=== PATIENT | male | born 1960 | race Caucasian/White ===

== ENCOUNTER 2017-01-24 14:43 | Emergency (ER) | payer OTHER ==
--- NOTE | 2017-01-24 15:56 | EDM.PDOC ---
ED HPI GENERAL MEDICAL PROBLEM - General Chief Complaint: Cardiovascular Problem Stated Complaint: RAPID HEART RATE Time Seen by Provider: 01/24/17 15:47 Source of Information: Reports: Patient, RN Notes Reviewed History Limitations: Reports: No Limitations - History of Present Illness INITIAL COMMENTS - FREE TEXT/NARRATIVE: The patient states that he has been experiencing low energy today. He states that he has dizzy spells, only when he is upright, since around 13:00 this afternoon. He states that after work, he went home and checked his blood pressure, finding it to be 99/66 with a heart rate of 71. He states that he went to the clinic, but was sent here. No prior similar symptoms. The patient denies having any recent chest pain or palpitations. No recent fever. He states that he had some shortness of breath without wheezing this morning, and took 2 puffs of his albuterol inhaler. The patient's PCP is Dr. Bobby Reese. - Related Data Allergies Allergy/AdvReac Type Severity Reaction Status Date / Time No Known Allergies Allergy Verified 01/24/17 14:51 Home Meds: Home Meds Aspirin [Halfprin] 81 mg PO DAILY 06/01/16 [History] Haloperidol [Haldol] 0.5 mg PO BEDTIME 06/01/16 [History] Isosorbide Mononitrate [Isosorbide Mononitrate ER] 30 mg PO DAILY 06/01/16 [ History] Lisinopril 40 mg PO DAILY 06/01/16 [History] Metoprolol Succinate [Toprol XL] 25 mg PO BEDTIME 06/01/16 [History] Nitroglycerin 0.4 mg SL ASDIRECTED 06/01/16 [History] PARoxetine HCl [Paroxetine HCl] 30 mg PO BEDTIME 06/01/16 [History] Pantoprazole [ProTONIX] 40 mg PO DAILY 06/01/16 [History] atorvaSTATin [Lipitor] 80 mg PO DAILY 06/01/16 [History] Furosemide [Lasix] 20 mg PO DAILY 01/24/17 [History] Past Medical History Cardiovascular History: Reports: CAD, Heart Failure, High Cholesterol, Hypertension, [place] (December 2009) Respiratory History: Reports: Other (See Below) (The patient was prescribed an albuterol inhaler for "asthma", however, he did not have asthma as a child, and has not undergone PFTs.) Gastrointestinal History: Reports: GERD Endocrine/Metabolic History: Reports: Obesity/BMI 30+ - Past Surgical History Cardiovascular Surgical History: Reports: Coronary Artery Stent Social & Family History - Tobacco Use Smoking Status *Q: Former Smoker Years of Tobacco use: 30 Packs/Tins Daily: 1 Month Tobacco Last Used: Quit 2009 - Alcohol Use Alcohol Use History: No - Recreational Drug Use Recreational Drug Use: No - Living Situation & Occupation Living situation: Reports: (), Alone Occupation: Employed ([employer]) ED ROS GENERAL - Review of Systems Review Of Systems: See Below Constitutional: Reports: No Symptoms HEENT: Reports: No Symptoms Respiratory: Reports: No Symptoms Cardiovascular: Reports: No Symptoms Endocrine: Reports: No Symptoms GI/Abdominal: Reports: No Symptoms : Reports: No Symptoms Musculoskeletal: Reports: No Symptoms Skin: Reports: No Symptoms Neurological: Reports: No Symptoms Psychiatric: Reports: No Symptoms Hematologic/Lymphatic: Reports: No Symptoms Immunologic: Reports: No Symptoms ED EXAM, GENERAL - Physical Exam Exam: See Below Exam Limited By: No Limitations General Appearance: Alert, WD/WN, No Apparent Distress Eye Exam: Bilateral Eye: Normal Inspection Ears: Normal External Exam, Hearing Grossly Normal Nose: Normal Inspection, No Blood Throat/Mouth: Normal Inspection, Normal Lips, Normal Voice, No Airway Compromise Head: Atraumatic, Normocephalic Neck: Normal Inspection, Full Range of Motion Respiratory/Chest: No Respiratory Distress, Lungs Clear, Normal Breath Sounds, No Accessory Muscle Use Cardiovascular: Normal Peripheral Pulses, Regular Rate, Rhythm, No Gallop, No JVD, No Murmur, No Rub Peripheral Pulses: 4+: Radial (L), Radial (R) GI/Abdominal: Normal Bowel Sounds, Soft, Non-Tender, No Organomegaly, No Distention, No Abnormal Bruit, No Mass, Other (Obese) (Male) Exam: Deferred Rectal (Males) Exam: Deferred Back Exam: Normal Inspection, Full Range of Motion, NT Extremities: Normal Inspection, Normal Range of Motion, No Pedal Edema, Normal Capillary Refill Neurological: Alert, Oriented, Normal Cognition, No Motor/Sensory Deficits Psychiatric: Normal Affect Skin Exam: Warm, Dry, Intact, Normal Color, No Rash Lymphatic: No Adenopathy EKG INTERPRETATION EKG Date: 01/24/17 Time: 14:52 Rhythm: NSR Rate (Beats/Min): 65 [place]: Normal P-Wave: Present QRS: Other (Likely incomplete RBBB) ST-T: Normal QT: Normal Comparison: No Change (06/01/2016) Course - Vital Signs Last Recorded V/S: Last Vital Signs Temp 36.7 C 01/24/17 14:51 Pulse 65 01/24/17 14:51 Resp 16 01/24/17 14:51 BP 110/62 01/24/17 14:51 Pulse Ox 96 01/24/17 14:51 Orthostatic Blood Pressure [ 109/68 Supine] - Orders/Labs/Meds Orders: Active Orders 24 hr Category Date Time Status EKG 12 Lead [EKG Documentation Completion] [RC] STAT Care 01/24/17 15:39 Active Orthostatic Vital Signs [RC] STAT Care 01/24/17 16:19 Active Chest 1V Frontal [CR] Stat Exams 01/24/17 15:40 Taken Labs: Laboratory Tests 01/24/17 01/24/17 01/24/17 Range/Units 15:47 15:47 15:47 WBC 6.67 (4.23-9.07) K/mm3 RBC 4.56 L (4.63-6.08) M/mm3 Hgb 13.6 L (13.7-17.5) gm/L Hct 41.5 (40.1-51.0) % MCV 91.0 (79.0-92.2) fl MCH 29.8 (25.7-32.2) pg MCHC 32.8 (32.2-35.5) g/dl RDW Std Deviation 43.4 (35.1-43.9) fL Plt Count 189 (163-337) K/mm3 MPV 11.5 (9.4-12.3) fl PT (8.0-13.0) SECONDS INR APTT (22-36) SECONDS D-Dimer, Quantitative 0.39 (0.19-0.59) mg/L Sodium 144 (136-145) mEq/L Potassium 4.2 (3.5-5.1) mEq/L Chloride 109 H (98-107) mEq/L Carbon Dioxide 32 (21-32) mEq/L Anion Gap 7.2 (5-15) BUN 16 (7-18) mg/dL Creatinine 1.2 (0.7-1.3) mg/dL Est Cr Clr Drug Dosing TNP Estimated GFR (MDRD) > 60 (>60) mL/min BUN/Creatinine Ratio 13.3 L (14-18) Glucose 69 L (74-106) mg/dL Calcium 8.7 (8.5-10.1) mg/dL Total Bilirubin 0.4 (0.2-1.0) mg/dL AST 37 (15-37) U/L ALT 43 (16-63) U/L Alkaline Phosphatase 79 (46-116) U/L Troponin I < 0.017 (0.00-0.056) ng/mL [id number] Pept (0-125) pg/mL Total Protein 6.0 L (6.4-8.2) g/dl Albumin 3.5 (3.4-5.0) g/dl Globulin 2.5 gm/dL Albumin/Globulin Ratio 1.4 (1-2) TSH 3rd Generation 3.554 (0.358-3.74) uIU/mL 01/24/17 01/24/17 Range/Units 15:47 15:47 WBC (4.23-9.07) K/mm3 RBC (4.63-6.08) M/mm3 Hgb (13.7-17.5) gm/L Hct (40.1-51.0) % MCV (79.0-92.2) fl MCH (25.7-32.2) pg MCHC (32.2-35.5) g/dl RDW Std Deviation (35.1-43.9) fL Plt Count (163-337) K/mm3 MPV (9.4-12.3) fl PT 10.8 (8.0-13.0) SECONDS INR 0.99 APTT 26 (22-36) SECONDS D-Dimer, Quantitative (0.19-0.59) mg/L Sodium (136-145) mEq/L Potassium (3.5-5.1) mEq/L Chloride (98-107) mEq/L Carbon Dioxide (21-32) mEq/L Anion Gap (5-15) BUN (7-18) mg/dL Creatinine (0.7-1.3) mg/dL Est Cr Clr Drug Dosing Estimated GFR (MDRD) (>60) mL/min BUN/Creatinine Ratio (14-18) Glucose (74-106) mg/dL Calcium (8.5-10.1) mg/dL Total Bilirubin (0.2-1.0) mg/dL AST (15-37) U/L ALT (16-63) U/L Alkaline Phosphatase (46-116) U/L Troponin I (0.00-0.056) ng/mL Ptf-[id number]-Bktybnmlaqj Pept 67 (0-125) pg/mL Total Protein (6.4-8.2) g/dl Albumin (3.4-5.0) g/dl Globulin gm/dL Albumin/Globulin Ratio (1-2) TSH 3rd Generation (0.358-3.74) uIU/mL - Re-Assessments/Exams Free Text/Narrative Re-Assessment/Exam: 01/24/17 17:05 Portable chest radiograph appears to be grossly normal. Cardiac silhouette is within normal limits. No pulmonary vascular congestion. No pleural effusions. No focal infiltrate. No pneumothorax. Formal read per the Radiologist pending. 01/24/17 17:10 The patient is not orthostatic. 01/24/17 17:49 Test results discussed with the patient. Today's workup is unremarkable, and does not extend the cause of the patient's symptoms. His blood glucose is modestly depressed at 69, however, the patient states that his symptoms are not influenced by eating. I recommended to the patient that if his symptoms persist , that he follow-up with his PCP, Dr. Reese. Departure - Departure Time of Disposition: 17:50 Disposition: Home, Self-Care 01 Condition: Good Clinical Impression: Malaise and fatigue, Dizzy spells Referrals: Bobby Reese Jr, MD [Primary Care Provider] - Forms: ED Department Discharge Additional Instructions: You were seen in the emergency room for having low energy and dizzy spells. Workup in the ER included blood work, an ECG, a chest x-ray, and positional blood pressure checks. Your entire workup was unremarkable, and does not explain the cause of your symptoms. You have not had a heart attack. You do not have a blood clot in your lungs. Your thyroid level is normal. You do not have pneumonia. There is no suggestion that you have an infection. You do not have any electrolyte abnormalities. No abnormal rhythms on your ECG. No congestive heart failure. If your symptoms persist, we recommend that you follow-up with your PCP, Dr. Bobby Reese. If any other problems, please do not hesitate to return to the ER. - My Orders Last 24 Hours: My Active Orders 01/24/17 16:19 Orthostatic Vital Signs [RC] STAT - Assessment/Plan Last 24 Hours: My Active Orders 01/24/17 16:19 Orthostatic Vital Signs [RC] STAT
[2017-01-24 16:30] VITALS: BP 110/62
--- NOTE | 2017-01-25 09:29 | CR ---
Chest: Frontal view of the chest was obtained. Comparison: Previous chest x-ray of 06/01/16. Heart size is within normal limits. Mild tortuosity of the thoracic aorta is seen. Lungs are clear. Bony structures are grossly intact. Impression: 1. Nothing acute is appreciated on frontal chest x-ray. Diagnostic code #1
== END 2017-01-24 18:25 | disposition home or self-care (01) ==
LOC: JD.ED 14:43
DX: R42 Dizziness and giddiness (principal); R53.83 Other fatigue; R53.81 Other malaise; I11.0 Hypertensive heart disease with heart failure; I50.9 Heart failure, unspecified; E78.00 Pure hypercholesterolemia, unspecified; I25.2 Old myocardial infarction; I25.10 Atherosclerotic heart disease of native coronary artery without angina pectoris; K21.9 Gastro-esophageal reflux disease without esophagitis; E66.9 Obesity, unspecified; Z95.5 Presence of coronary angioplasty implant and graft; Z87.891 Personal history of nicotine dependence; Z79.899 Other long term (current) drug therapy; Z79.82 Long term (current) use of aspirin; Z68.34 Body mass index [BMI] 34.0-34.9, adult
CPT/HCPCS: 36415; 71010; 71010-26; 80053; 83880; 84443; 84484; 85027; 85379; 85610; 85730; 93005; 99283; 99285-25

== ENCOUNTER 2018-03-03 14:04 | Emergency (ER) | payer OTHER ==
[2018-03-03] MEDS ORDERED: Aspirin 81 MG Tab.Chew PO ONE (14:23)
[2018-03-03] MEDS ORDERED: Nitroglycerin 0.4 MG Tab.SL SL ONE (14:23)
[2018-03-03] MEDS ORDERED: Alum Hydrox/Mag Hydrox/Simeth 30 ML, Lidocaine 2% 15 ML PO ONE ×2 (14:24)
[2018-03-03] MEDS ORDERED: Ondansetron 4 MG/2 ML SDV IVPUSH ONE (14:25)
[2018-03-03] MEDS ORDERED: Sodium Chloride 0.9% 1,000 ML IV SCH (14:30)
--- NOTE | 2018-03-03 14:34 | EDM.PDOC ---
ED HPI GENERAL MEDICAL PROBLEM - General Chief Complaint: Cardiovascular Problem Stated Complaint: CHEST PAIN Time Seen by Provider: 03/03/18 14:15 Source of Information: Reports: Patient History Limitations: Reports: No Limitations - History of Present Illness INITIAL COMMENTS - FREE TEXT/NARRATIVE: Patient is a 57-year-old male who presents to the ED complaining of lower sternal chest discomfort with diaphoresis and nausea. Patient states at about noon today while at rest developed discomfort. Pain is currently rated 2 out of 10. Pain is similar to previous chest discomfort with last RI that required stent placement. Patient has 2 stents to unknown vessel. First one was placed in 2009 and the second was placed in 2011. He has not taken any of his morning medications today since completing the gi cleanse for colonoscopy tomorrow. Chest Pain Score (Numeric/FACES): 4 - Related Data Allergies Allergy/AdvReac Type Severity Reaction Status Date / Time No Known Allergies Allergy Verified 01/24/17 14:51 Home Meds: Home Meds Aspirin [Halfprin] 81 mg PO DAILY 06/01/16 [History] Haloperidol [Haldol] 0.5 mg PO BEDTIME 06/01/16 [History] Isosorbide Mononitrate [Isosorbide Mononitrate ER] 30 mg PO DAILY 06/01/16 [ History] Lisinopril 40 mg PO DAILY 06/01/16 [History] Nitroglycerin 0.4 mg SL ASDIRECTED 06/01/16 [History] PARoxetine HCl [Paroxetine HCl] 30 mg PO BEDTIME 06/01/16 [History] Pantoprazole [ProTONIX] 40 mg PO DAILY 06/01/16 [History] Furosemide [Lasix] 20 mg PO DAILY 01/24/17 [History] Metoprolol Succinate [Toprol XL] 12.5 mg PO BEDTIME 03/03/18 [History] Rosuvastatin Calcium [Crestor] 40 mg PO BEDTIME 03/03/18 [History] Past Medical History Cardiovascular History: Reports: CAD, Heart Failure, High Cholesterol, Hypertension, RI, Stents Respiratory History: Reports: Other (See Below) Gastrointestinal History: Reports: GERD Psychiatric History: Reports: Other (See Below) Other Psychiatric History: pt wears ankle bracelet since 2015 for sex offender Endocrine/Metabolic History: Reports: Obesity/BMI 30+ - Past Surgical History Cardiovascular Surgical History: Reports: Coronary Artery Stent Social & Family History - Tobacco Use Smoking Status *Q: Current Every Day Smoker Years of Tobacco use: 1 Packs/Tins Daily: 1 - Caffeine Use Caffeine Use: Reports: Soda - Recreational Drug Use Recreational Drug Use: No - Living Situation & Occupation Living situation: Reports: (), Alone Occupation: Employed ([employer]) ED ROS GENERAL - Review of Systems Review Of Systems: See Below Constitutional: Reports: Chills. Denies: Fever, Decreased Appetite Respiratory: Reports: Cough (Chronic). Denies: Shortness of Breath, Hemoptysis Cardiovascular: Reports: Chest Pain (Lower sternal border). Denies: Dyspnea on Exertion, Lightheadedness, Palpitations, Syncope GI/Abdominal: Reports: No Symptoms : Reports: No Symptoms Musculoskeletal: Reports: No Symptoms Neurological: Reports: No Symptoms ED EXAM, GENERAL - Physical Exam Exam: See Below Exam Limited By: No Limitations General Appearance: Alert, WD/WN, Mild Distress Eye Exam: Bilateral Eye: Normal Inspection Ears: Hearing Grossly Normal Nose: Normal Inspection Throat/Mouth: Normal Voice, No Airway Compromise Head: Atraumatic, Normocephalic Neck: Normal Inspection, Supple, Non-Tender, Full Range of Motion Respiratory/Chest: No Respiratory Distress, Lungs Clear, Normal Breath Sounds, No Accessory Muscle Use, Chest Non-Tender Cardiovascular: Normal Peripheral Pulses, Regular Rate, Rhythm, No Murmur Peripheral Pulses: 1+: Posterior Tibial (L), Posterior Tibial (R), 2+: Radial (L ), Radial (R) GI/Abdominal: Normal Bowel Sounds, Soft, Non-Tender, No Organomegaly, No Distention Extremities: Normal Inspection, Normal Range of Motion, Non-Tender, No Pedal Edema, Normal Capillary Refill Neurological: Alert, Oriented, CN II-XII Intact, Normal Cognition, No Motor/ Sensory Deficits Psychiatric: Normal Affect, Normal Mood Skin Exam: Warm, Dry, Intact, Normal Color, No Rash Course - Vital Signs Last Recorded V/S: Last Vital Signs Temp 100.9 F H 03/03/18 15:44 Pulse 72 03/03/18 15:44 Resp 20 03/03/18 15:44 BP 132/99 H 03/03/18 15:44 Pulse Ox 96 03/03/18 15:44 - Orders/Labs/Meds Orders: Active Orders 24 hr Category Date Time Status EKG 12 Lead [EKG Documentation Completion] [RC] STAT Care 03/03/18 14:55 Active EKG Documentation Completion [RC] ASDIRECTED Care 03/03/18 14:49 Active Chest 1V Frontal [CR] Stat Exams 03/03/18 14:23 Taken CULTURE BLOOD [BC] Stat Lab 03/03/18 16:16 Received CULTURE BLOOD [BC] Stat Lab 03/03/18 16:23 Received Blood Culture x2 Reflex Set [OM.PC] Stat Oth 03/03/18 15:54 Ordered EKG 12 Lead [EK] Stat Ther 03/03/18 14:48 Ordered Labs: Laboratory Tests 03/03/18 03/03/18 03/03/18 Range/Units 14:15 14:15 14:15 WBC 13.22 H (4.23-9.07) K/mm3 RBC 5.46 (4.63-6.08) M/mm3 Hgb 16.0 (13.7-17.5) gm/L Hct 48.6 (40.1-51.0) % MCV 89.0 (79.0-92.2) fl MCH 29.3 (25.7-32.2) pg MCHC 32.9 (32.2-35.5) g/dl RDW Std Deviation 42.5 (35.1-43.9) fL Plt Count 206 (163-337) K/mm3 MPV 11.7 (9.4-12.3) fl Neutrophils % (Manual) 89 H (40-60) % Band Neutrophils % 0 (0-10) % Lymphocytes % (Manual) 6 L (20-40) % Atypical Lymphs % 0 % Monocytes % (Manual) 1 L (2-10) % Eosinophils % (Manual) 2 (0.8-7.0) % Basophils % (Manual) 2 H (0.2-1.2) Platelet Estimate Adequate Plt Morphology Comment Normal RBC Morph Comment Normal PT 10.6 (9.5-12.1) SECONDS INR 0.97 APTT 22 L (24-31) SECONDS Sodium 142 (136-145) mEq/L Potassium 4.2 (3.5-5.1) mEq/L Chloride 106 (98-107) mEq/L Carbon Dioxide 29 (21-32) mEq/L Anion Gap 11.2 (5-15) BUN 15 (7-18) mg/dL Creatinine 1.3 (0.7-1.3) mg/dL Est Cr Clr Drug Dosing 61.94 mL/min Estimated GFR (MDRD) 57 (>60) mL/min BUN/Creatinine Ratio 11.5 L (14-18) Glucose 127 H (74-106) mg/dL Calcium 8.7 (8.5-10.1) mg/dL Total Bilirubin 0.4 (0.2-1.0) mg/dL AST 27 (15-37) U/L ALT 31 (16-63) U/L Alkaline Phosphatase 78 (46-116) U/L Troponin I 0.092 H* (0.00-0.056) ng/mL C-Reactive Protein 0.7 (<1.0) mg/dL Total Protein 7.2 (6.4-8.2) g/dl Albumin 4.0 (3.4-5.0) g/dl Globulin 3.2 gm/dL Albumin/Globulin Ratio 1.3 (1-2) Lipase 178 (73-393) U/L Meds: Medications Discontinued Medications Generic Name Dose Route Start Last Admin Trade Name Freq PRN Reason Stop Dose Admin Acetaminophen 975 mg 03/03/18 15:54 03/03/18 16:11 Tylenol PO 03/03/18 15:55 975 mg NOW ONE Administration Aspirin 324 mg 03/03/18 14:23 03/03/18 14:33 Aspirin PO 03/03/18 14:24 324 mg ONETIME ONE Administration Al Hydroxide/Mg Hydroxide 30 0 ml 03/03/18 14:24 03/03/18 14:37 ml/ Lidocaine HCl 15 ml PO 03/03/18 14:25 45 ml ONETIME ONE Administration Heparin Sodium (Porcine) 5,000 units 03/03/18 14:56 03/03/18 15:16 Heparin Sodium IVPUSH 03/03/18 14:57 5,000 units ONETIME ONE Administration Sodium Chloride 1,000 mls @ 150 mls/hr 03/03/18 14:30 03/03/18 14:36 Normal Saline IV 150 mls/hr ASDIRECTED SHAUNA Administration Nitroglycerin/Dextrose Confirm 03/03/18 14:55 03/03/18 15:08 Nitroglycerin 25 Mg/D5w 250 Ml Administered 03/03/18 14:56 Not Given Dose 25 mg in 250 mls @ as directed .ROUTE .STK-MED ONE Heparin Sodium/Dextrose 25,000 units in 500 mls @ 25.038 mls/hr 03/03/18 15: 00 03/03/18 15:19 Heparin 25,000 Units In D5w 500 Ml IV 12 units/kg/hr TITRATE SHAUNA 25.038 mls/hr Administration Protocol 12 UNITS/KG/HR Nitroglycerin/Dextrose 25 mg in 250 mls @ 3 mls/hr 03/03/18 15:00 03/03/18 15 :05 Nitroglycerin 25 Mg/D5w 250 Ml IV 3 mls/hr TITRATE SHAUNA 3 mls/hr Administration Protocol Nitroglycerin 0.4 mg 03/03/18 14:23 03/03/18 14:36 Nitrostat SL 03/03/18 14:24 0.4 mg ONETIME ONE Administration Ondansetron HCl 4 mg 03/03/18 14:25 03/03/18 14:34 Zofran IVPUSH 03/03/18 14:26 4 mg ONETIME ONE Administration Rosuvastatin Calcium 40 mg 03/03/18 15:53 03/03/18 16:09 Crestor PO 03/03/18 15:54 40 mg ONETIME ONE Administration - Re-Assessments/Exams Free Text/Narrative Re-Assessment/Exam: Patient currently complains of 2 out of 10 pain to lower chest border. Pain is similar to previous RI in 2009. Patient required 2 stent placements 1st in and 2009 and 2nd in 2011. Does not recall the vessel that was involved. He was nauseated and diaphoretic with onset of chest discomfort. Currently the pain is improving. He is mildly diaphoretic with admission to the ED. Nausea is only minimal as well. He is currently prepping for colonoscopy as scheduled for tomorrow. He has not taken his aspirin today. IV established with normal saline, GI cocktail by mouth, nitroglycerin tab one sublingual, aspirin 324 mg by mouth, and GI cocktail ordered. EKG sinus rhythm with rate of 67. Q waves in anterior lateral leads. Age indeterminate. Review previous EKG obtained January 24, 2017 with no significant changes. Labs and studies obtained including: CBC, chem 14, CRP, troponin, coag studies, chest x-ray, lipase, and UA. CXR: no acute findings. Reviewed with Dr. Luna. Final interpretation pending. Per nursing staff patients pain is currently a 1/10. EKG obtained. Slight change in anterolateral leads. Still no reciprocal changes. This was reviewed with Dr. Luna and Dr. Munroe. 1452 Lab reported patients troponin is 0.092. Pain improved from a 2 out of 10 to a 1 out of 10 with the nitroglycerin. Vital signs are stable. He was put on some O2 via nasal cannula with SPO2 of 88% on room air with admission to the ED. White blood cell count 13.22, hemoglobin 16, platelet count 206, neutrophil percent is 89, chemistry panel essentially normal. Lipase normal. CRP normal. Second EKG was obtained. No significant change from previous EKG. ST elevation slightly improved with previous EKG. Dr. Luna agrees. Still no reciprocal changes. 1510 Called [facility]. They requested EKGS be faxed to [facility] at [phone]. The initial and 2nd EKG have been faxed. They will call back once cardiologists reviews. [address] Hutchinson, television cameraman Cardiologists. Admit to hospitalists. Spoke with Dr. Heller television cameraman hospitalists. He has accepted the call. [facility] will be transporting the patient. Transfer paperwork completed. Patient has not taken his crestor today. Ordered 40mg PO. Patient continues to be pain free. Per nursing staff patients temp is 100.9. Tylenol and blood cultures ordered. Patient has not provided a UA sample yet. Departure - Departure Time of Disposition: 15:50 Disposition: Admitted As Inpatient 66 Condition: Good Clinical Impression: NSTEMI (non-ST elevated myocardial infarction) Referrals: Bobby Reese Jr, MD [Primary Care Provider] - Forms: ED Department Discharge - My Orders Last 24 Hours: My Active Orders 03/03/18 14:23 Chest 1V Frontal [CR] Stat 03/03/18 14:48 EKG 12 Lead [EK] Stat 03/03/18 14:49 EKG Documentation Completion [RC] ASDIRECTED 03/03/18 14:55 EKG 12 Lead [EKG Documentation Completion] [RC] STAT 03/03/18 15:54 Blood Culture x2 Reflex Set [OM.PC] Stat 03/03/18 16:16 CULTURE BLOOD [BC] Stat 03/03/18 16:23 CULTURE BLOOD [BC] Stat - Assessment/Plan Last 24 Hours: My Active Orders 03/03/18 14:23 Chest 1V Frontal [CR] Stat 03/03/18 14:48 EKG 12 Lead [EK] Stat 03/03/18 14:49 EKG Documentation Completion [RC] ASDIRECTED 03/03/18 14:55 EKG 12 Lead [EKG Documentation Completion] [RC] STAT 03/03/18 15:54 Blood Culture x2 Reflex Set [OM.PC] Stat 03/03/18 16:16 CULTURE BLOOD [BC] Stat 03/03/18 16:23 CULTURE BLOOD [BC] Stat
[2018-03-03] MEDS ORDERED: Nitroglycerin/D5W 25 MG/250 ML BOTTLE ONE (14:55)
[2018-03-03] MEDS ORDERED: Heparin Sodium 5,000 Units/ML Vial IVPUSH ONE (14:56)
[2018-03-03] MEDS ORDERED: Nitroglycerin/D5W 25 MG/250 ML BOTTLE IV SCH (15:00)
[2018-03-03] MEDS ORDERED: Heparin Sodium/D5W 25,000 UNITS/500 ML BAG IV SCH (15:00)
[2018-03-03 15:47] VITALS: BP 132/99
[2018-03-03] MEDS ORDERED: Rosuvastatin 10 MG Tab PO ONE (15:53)
[2018-03-03] MEDS ORDERED: Acetaminophen 325 MG Tab PO ONE (15:54)
--- NOTE | 2018-03-04 07:13 | CR ---
Chest: Portable view of the chest was obtained. Comparison: Prior chest x-ray of 01/24/17. Heart size appears within normal limits for portable technique. Tortuous thoracic aorta is seen. Lungs are clear with no acute parenchymal change. Bony structures are grossly intact. Impression: 1. Nothing acute is seen on portable chest x-ray. Diagnostic code #2
== END 2018-03-03 16:25 | disposition critical access hospital (66) ==
LOC: JD.ED 14:04
DX: I21.4 Non-ST elevation (NSTEMI) myocardial infarction (principal); I11.0 Hypertensive heart disease with heart failure; I50.9 Heart failure, unspecified; F17.210 Nicotine dependence, cigarettes, uncomplicated; Z79.899 Other long term (current) drug therapy; Z79.82 Long term (current) use of aspirin
CPT/HCPCS: 36415; 71045; 80053; 83690; 84484; 85007; 85027; 85610; 85730; 86140; 87040; 93005; 96365; 96368; 96375; 96376; 99285; A9270; J1644; J2405; J3490; J7040

== ENCOUNTER 2021-11-09 10:19 | Day surgery (SDC) | payer MEDICAID, OTHER ==
[~2021-11-09 10:19] MED LIST: Lactated Ringers 1,000 ML IV SCH; Lidocaine 1% 4 ML ONE; Lidocaine 1%/Sod Bicarbonate in NS 8.4% 1 ML Syringe IDERM PRN; Midazolam 1 MG/ML 2 ML SDV ONE; Propofol 200 MG/20 ML SDV ONE; Sodium Chloride 0.9% 10 ML Syringe FLUSH PRN; Sodium Chloride 0.9% 10 ML Syringe FLUSH SCH; fentaNYL 100 MCG/2 ML SDV ONE
[2021-11-09] MEDS ORDERED: Propofol 200 MG/20 ML SDV ONE (12:04)
[2021-11-09 13:08] VITALS: BP 112/71; PULSE 74
== END 2021-11-09 13:17 | disposition home or self-care (01) ==
LOC: JD.SDS 10:19
PROVIDERS: ATTEND Surgery
DX: K63.5 Polyp of colon (principal); K57.30 Diverticulosis of large intestine without perforation or abscess without bleeding; K44.9 Diaphragmatic hernia without obstruction or gangrene; K22.70 Barrett's esophagus without dysplasia; K29.80 Duodenitis without bleeding; K29.70 Gastritis, unspecified, without bleeding; K64.9 Unspecified hemorrhoids; K31.89 Other diseases of stomach and duodenum; K31.819 Angiodysplasia of stomach and duodenum without bleeding; K22.89 Other specified disease of esophagus; I25.10 Atherosclerotic heart disease of native coronary artery without angina pectoris; F32.A Depression, unspecified; K21.9 Gastro-esophageal reflux disease without esophagitis; E78.5 Hyperlipidemia, unspecified; F41.9 Anxiety disorder, unspecified; H54.7 Unspecified visual loss; I11.0 Hypertensive heart disease with heart failure; I50.9 Heart failure, unspecified; E78.00 Pure hypercholesterolemia, unspecified; E66.9 Obesity, unspecified; Z68.43 Body mass index [BMI] 50.0-59.9, adult; Z87.891 Personal history of nicotine dependence; Z79.82 Long term (current) use of aspirin; Z79.899 Other long term (current) drug therapy
CPT/HCPCS: 36415; 43239; 45380; 80051; J2250; J2704; J3010; J7120; 00813

== ENCOUNTER 2021-12-11 21:16 | Emergency (ER) | payer MEDICAID ==
[2021-12-12 07:36] VITALS: BP 173/105; PULSE 92
== END 2021-12-12 09:51 | disposition home or self-care (01) ==
LOC: JD.ED 21:16
DX: F20.89 Other schizophrenia (principal); I25.10 Atherosclerotic heart disease of native coronary artery without angina pectoris; I11.0 Hypertensive heart disease with heart failure; I50.9 Heart failure, unspecified; E78.00 Pure hypercholesterolemia, unspecified; K21.9 Gastro-esophageal reflux disease without esophagitis; E66.9 Obesity, unspecified; Z68.35 Body mass index [BMI] 35.0-35.9, adult; Z95.5 Presence of coronary angioplasty implant and graft; Z79.82 Long term (current) use of aspirin; Z79.02 Long term (current) use of antithrombotics/antiplatelets; Z79.899 Other long term (current) drug therapy
CPT/HCPCS: 36415; 70450; 70450-26; 80053; 80143; 80179; 80306; 80307; 82140; 83735; 84443; 85025; 99284; 99285-25

== ENCOUNTER 2021-12-13 07:43 | Emergency (ER) | payer MEDICAID ==
[2021-12-13] MEDS ORDERED: OLANZapine 10 MG Vial IM ONE (08:40)
[2021-12-13] MEDS ORDERED: OLANZapine 10 MG Vial ONE (08:42)
[2021-12-13 14:15] VITALS: BP 151/97; PULSE 67
== END 2021-12-13 14:21 ==
LOC: JD.ED 07:43
DX: F20.89 Other schizophrenia (principal); I25.10 Atherosclerotic heart disease of native coronary artery without angina pectoris; I11.0 Hypertensive heart disease with heart failure; I50.9 Heart failure, unspecified; E78.00 Pure hypercholesterolemia, unspecified; I25.2 Old myocardial infarction; K21.9 Gastro-esophageal reflux disease without esophagitis; E66.9 Obesity, unspecified; Z68.36 Body mass index [BMI] 36.0-36.9, adult; Z20.822 Contact with and (suspected) exposure to COVID-19
CPT/HCPCS: 36415; 80053; 80143; 80179; 80306; 80307; 84443; 85025; 87635; 93005; 96372; 99285; J3490; 93010; 99284; U0002

== ENCOUNTER 2021-12-30 11:28 | Emergency (ER) | payer MEDICAID ==
[2021-12-30 11:38] VITALS: BP 141/87; PULSE 92
[2021-12-30] MEDS ORDERED: risperiDONE Solution 1 MG/1 ML 30 ML Bottle PO ONE (12:24)
[2021-12-30] MEDS ORDERED: risperiDONE 1 MG Tab PO STA (12:47)
[2021-12-30] MEDS ORDERED: amLODIPine 5 MG Tab PO ONE (14:12)
[2021-12-30] MEDS ORDERED: Clopidogrel 75 MG Tab PO ONE (14:16)
[2021-12-30] MEDS ORDERED: Isosorbide Mononitrate 60 MG Tab.ER PO ONE (14:16)
[2021-12-30] MEDS ORDERED: Furosemide 20 MG Tab PO ONE (14:16)
[2021-12-30] MEDS ORDERED: Lisinopril 20 MG Tab PO SCH (14:17)
== END 2021-12-30 17:07 | disposition other institution (70) ==
LOC: JD.ED 11:28
DX: F20.89 Other schizophrenia (principal); I25.10 Atherosclerotic heart disease of native coronary artery without angina pectoris; I50.9 Heart failure, unspecified; E66.9 Obesity, unspecified; Z68.35 Body mass index [BMI] 35.0-35.9, adult; F17.210 Nicotine dependence, cigarettes, uncomplicated; Z79.899 Other long term (current) drug therapy; Z20.822 Contact with and (suspected) exposure to COVID-19
CPT/HCPCS: 36415; 80053; 80143; 80179; 80306; 80307; 84443; 85007; 85027; 87635; 93005; 99285; A9270; U0002

== ENCOUNTER 2022-11-03 16:44 | Inpatient (IN) | payer MEDICAID ==
[2022-11-03] MEDS ORDERED: Sodium Chloride 0.9% 10 ML Syringe FLUSH PRN (17:08)
[2022-11-03] MEDS ORDERED: Albuterol/Ipratropium 3.0-0.5 MG/3 ML Neb Soln NEB ONE (17:09)
[2022-11-03] MEDS ORDERED: Furosemide 40 MG/4 ML VIAL IVPUSH ONE (17:11)
[2022-11-03 17:49] LABS: BASOPHILS ABSOLUTE AUTO 0.02 K/mm3 (0.01-0.08); BASOPHILS PERCENT AUTO 0.1 % (0.1-1.2); EOSINOPHILS ABSOLUTE AUTO 0.17 K/mm3 (0.04-0.54); EOSINOPHILS PERCENT AUTO 1.3 (0.8-7.0); HEMATOCRIT 45.9 % (40.1-51.0); HEMOGLOBIN 15.6 gm/dl (13.7-17.5); IMMATURE GRAN ABSOLUTE AUTO 0.04 K/mm3 (0.00-0.10); IMMATURE GRAN PERCENT AUTO 0.3 % (<=1.0); LYMPHOCYTES ABSOLUTE AUTO 1.09 K/mm3 (1.32-3.57); LYMPHOCYTES PERCENT AUTO 8.1 % (21.8-53.1); MEAN CORPUSCULAR HEMOGLOBIN 30.1 pg (25.7-32.2); MEAN CORPUSCULAR VOLUME 88.4 fl (79.0-92.2); MEAN PLATELET VOLUME 10.4 fl (9.4-12.3); MONOCYTES PERCENT AUTO 8.9 % (5.3-12.2); NEUTROPHILS ABSOLUTE AUTO 10.95 K/mm3 (1.78-5.38); NEUTROPHILS PERCENT AUTO 81.3 % (34.0-67.9); PLATELET COUNT,PLT 208 K/mm3 (163-337); RED BLOOD CELL COUNT 5.19 M/mm3 (4.63-6.08); WHITE BLOOD CELL COUNT,WBC 13.47 K/mm3 (4.23-9.07)
[2022-11-03 18:24] LABS: A/G RATIO 1.2 (1-2); ALANINE AMINOTRANSFERASE,ALT 52 U/L (16-63); ALBUMIN 3.9 g/dl (3.4-5.0); ALKALINE PHOSPHATASE 81 U/L (46-116); ASPARTATE AMNIOTRANSFERASE,AST 42 U/L (15-37); BILIRUBIN TOTAL 0.6 mg/dL (0.2-1.0); BLOOD UREA NITROGEN,BUN 9 mg/dL (7-18); BUN/CREATININE RATIO 8.2 (14-18); CALCIUM 8.4 mg/dL (8.5-10.1); CARBON DIOXIDE,CO2 30 mEq/L (21-32); CHLORIDE,CL 85 mEq/L (98-107); CREATININE 1.1 mg/dL (0.7-1.3); ESTIMATED GFR 75 mL/min (>60); GLUCOSE RANDOM 120 mg/dL (70-99); PROTEIN TOTAL,TP 7.1 g/dl (6.4-8.2); SODIUM,NA 123 mEq/L (136-145)
[2022-11-03 19:14] LABS: APPEARANCE,URINE CLEAR (Clear); BILIRUBIN,URINE NEGATIVE (Negative); COLOR,URINE LIGHT YELLOW (Yellow); GLUCOSE,URINE NEGATIVE (Negative); KETONES,URINE NEGATIVE (Negative); LEUKOCYTE ESTERASE,URINE NEGATIVE (Negative); NITRITE,URINE NEGATIVE (Negative); OCCULT BLOOD,URINE NEGATIVE (Negative); PROTEIN,URINE NEGATIVE (Negative); UROBILINOGEN,URINE 0.2 (0.2-1.0)
[2022-11-03] MEDS ORDERED: cefTRIAXone 1 GM in Sodium Chloride 0.9% 100 ML IV ONE (19:25)
[2022-11-03 19:42] LABS: BACTERIA,URINE RARE /hpf (FEW); MUCUS,URINE NOT SEEN /hpf (FEW); RBC,URINE 0-5 /hpf (0-5); SQUAMOUS EPITHELIAL CELLS,UR NOT SEEN /hpf (0-5); WBC,URINE NOT SEEN /hpf (0-5)
[2022-11-03] MEDS ORDERED: Acetaminophen/oxyCODONE 325-5 MG Tab PO PRN (20:06)
[2022-11-03] MEDS ORDERED: HYDROmorphone 0.5 MG/0.5 ML Syringe IVPUSH PRN (20:06)
[2022-11-03] MEDS ORDERED: Psyllium Husk Powder Sugar Free 5.85 GM Packet PO PRN (20:06)
[2022-11-03] MEDS ORDERED: Ondansetron 4 MG/2 ML SDV IVPUSH PRN (20:06)
[2022-11-03] MEDS ORDERED: Docusate Sodium 100 MG Cap PO PRN (20:06)
[2022-11-03] MEDS ORDERED: hydrALAZINE 20 MG/ML SDV IVPUSH PRN (20:06)
[2022-11-03] MEDS ORDERED: RISPERIDONE 4 MG PO SCH (21:00)
[2022-11-03] MEDS ORDERED: Metoprolol Succinate 25 MG Tab.ER PO SCH (21:00)
[2022-11-03] MEDS: Sodium Chloride 1 GM Tab PO SCH ×2 (22:37→22:38)
[2022-11-03] MEDS: Rosuvastatin 10 MG Tab PO SCH (22:37)
[2022-11-03] MEDS: Acetaminophen 325 MG Tab PO PRN (23:02)
[2022-11-03] MEDS: Lisinopril 20 MG Tab PO SCH (23:03)
[2022-11-03] MEDS: Pantoprazole 40 MG Tab.CR PO SCH (23:03)
[2022-11-04] MEDS: Pantoprazole 40 MG Tab.CR PO SCH (05:46)
[2022-11-04] MEDS: Furosemide 40 MG/4 ML VIAL IVPUSH SCH ×2 (05:47→15:01)
[2022-11-04 06:11] LABS: BASOPHILS ABSOLUTE AUTO 0.02 K/mm3 (0.01-0.08); BASOPHILS PERCENT AUTO 0.2 % (0.1-1.2); EOSINOPHILS PERCENT AUTO 1.7 (0.8-7.0); HEMATOCRIT 47.1 % (40.1-51.0); HEMOGLOBIN 15.9 gm/dl (13.7-17.5); IMMATURE GRAN ABSOLUTE AUTO 0.04 K/mm3 (0.00-0.10); IMMATURE GRAN PERCENT AUTO 0.3 % (<=1.0); LYMPHOCYTES ABSOLUTE AUTO 1.02 K/mm3 (1.32-3.57); LYMPHOCYTES PERCENT AUTO 8.6 % (21.8-53.1); MEAN CORPUSCULAR HEMOGLOBIN 30.2 pg (25.7-32.2); MEAN CORPUSCULAR HGB CONC 33.8 g/dl (32.2-35.5); MEAN CORPUSCULAR VOLUME 89.5 fl (79.0-92.2); MEAN PLATELET VOLUME 10.3 fl (9.4-12.3); MONOCYTES ABSOLUTE AUTO 1.12 K/mm3 (0.30-0.82); MONOCYTES PERCENT AUTO 9.5 % (5.3-12.2); NEUTROPHILS PERCENT AUTO 79.7 % (34.0-67.9); PLATELET COUNT,PLT 202 K/mm3 (163-337); RED BLOOD CELL COUNT 5.26 M/mm3 (4.63-6.08)
[2022-11-04 06:44] LABS: ANION GAP 10.2 (5-15); CALCIUM 8.8 mg/dL (8.5-10.1); EST CRCL DRUG DOSING (CG) 75.61 mL/min; POTASSIUM,K 4.2 mEq/L (3.5-5.1)
[2022-11-04] MEDS: Clopidogrel 75 MG Tab PO SCH (09:43)
[2022-11-04] MEDS: Lisinopril 20 MG Tab PO SCH (09:43)
[2022-11-04] MEDS: Isosorbide Mononitrate 60 MG Tab.ER PO SCH (09:43)
[2022-11-04] MEDS: Sodium Chloride 1 GM Tab PO SCH ×3 (09:43→20:42)
[2022-11-04] MEDS: Multivitamin Tab PO SCH (09:43)
[2022-11-04] MEDS: Enoxaparin 40 MG/0.4 ML Syringe SUBCUT SCH (09:44)
[2022-11-04] MEDS ORDERED: Magnesium Hydroxide 400 MG/5 ML Susp 30 ML Cup PO PRN (12:00)
[2022-11-04] MEDS: Albuterol/Ipratropium 3.0-0.5 MG/3 ML Neb Soln NEB SCH ×2 (16:38→20:59)
[2022-11-04] MEDS: methylPREDNISolone Sodium Succinate 40 MG/1 ML SDV IVPUSH SCH (18:24)
[2022-11-04] MEDS: cefTRIAXone 1 GM in Sodium Chloride 0.9% 100 ML IV SCH (20:41)
[2022-11-04] MEDS: Rosuvastatin 10 MG Tab PO SCH (20:42)
[2022-11-05] MEDS: Furosemide 40 MG/4 ML VIAL IVPUSH SCH ×2 (05:57→17:03)
[2022-11-05] MEDS: methylPREDNISolone Sodium Succinate 40 MG/1 ML SDV IVPUSH SCH ×2 (05:57→18:09)
[2022-11-05] MEDS: Pantoprazole 40 MG Tab.CR PO SCH (05:59)
[2022-11-05 06:01] LABS: EOSINOPHILS PERCENT AUTO 0 (0.8-7.0); HEMATOCRIT 47.3 % (40.1-51.0); HEMOGLOBIN 15.9 gm/dl (13.7-17.5); IMMATURE GRAN ABSOLUTE AUTO 0.03 K/mm3 (0.00-0.10); IMMATURE GRAN PERCENT AUTO 0.3 % (<=1.0); LYMPHOCYTES ABSOLUTE AUTO 0.53 K/mm3 (1.32-3.57); LYMPHOCYTES PERCENT AUTO 4.9 % (21.8-53.1); MEAN CORPUSCULAR HEMOGLOBIN 29.9 pg (25.7-32.2); MEAN CORPUSCULAR HGB CONC 33.6 g/dl (32.2-35.5); MEAN CORPUSCULAR VOLUME 88.9 fl (79.0-92.2); MEAN PLATELET VOLUME 10.7 fl (9.4-12.3); MONOCYTES ABSOLUTE AUTO 0.51 K/mm3 (0.30-0.82); MONOCYTES PERCENT AUTO 4.7 % (5.3-12.2); NEUTROPHILS ABSOLUTE AUTO 9.78 K/mm3 (1.78-5.38); NEUTROPHILS PERCENT AUTO 90.1 % (34.0-67.9); PLATELET COUNT,PLT 209 K/mm3 (163-337); RED BLOOD CELL COUNT 5.32 M/mm3 (4.63-6.08); WHITE BLOOD CELL COUNT,WBC 10.85 K/mm3 (4.23-9.07)
[2022-11-05 06:11] LABS: ANION GAP 12.5 (5-15); BUN/CREATININE RATIO 8.9 (14-18); CREATININE 0.9 mg/dL (0.7-1.3); EST CRCL DRUG DOSING (CG) 84.01 mL/min; POTASSIUM,K 4.5 mEq/L (3.5-5.1)
[2022-11-05 06:22] LABS: SLIDE REVIEW ABNORMAL SMEAR
[2022-11-05] MEDS: Albuterol/Ipratropium 3.0-0.5 MG/3 ML Neb Soln NEB SCH ×4 (06:23→20:40)
[2022-11-05] MEDS: Multivitamin Tab PO SCH (08:48)
[2022-11-05] MEDS: Isosorbide Mononitrate 60 MG Tab.ER PO SCH (08:48)
[2022-11-05] MEDS: Lisinopril 20 MG Tab PO SCH (08:48)
[2022-11-05] MEDS: Clopidogrel 75 MG Tab PO SCH (08:48)
[2022-11-05] MEDS: Enoxaparin 40 MG/0.4 ML Syringe SUBCUT SCH (08:50)
[2022-11-05] MEDS: Sodium Chloride 1 GM Tab PO SCH ×3 (09:16→20:52)
[2022-11-05] MEDS ORDERED: Polyethylene Glycol/Electrolytes 4,000 ML Bottle PO ONE (13:54)
[2022-11-05] MEDS ORDERED: RISPERIDONE MICROSPHERES 25 MG/2 ML IM SCH (14:00)
[2022-11-05] MEDS ORDERED: [UNRECOGNIZED DRUG - OTHER] IM SCH (14:00)
[2022-11-05] MEDS: Rosuvastatin 10 MG Tab PO SCH (20:52)
[2022-11-05] MEDS: cefTRIAXone 1 GM in Sodium Chloride 0.9% 100 ML IV SCH (20:52)
[2022-11-05] MEDS: Acetaminophen 325 MG Tab PO PRN (21:55)
[2022-11-06] MEDS: Albuterol/Ipratropium 3.0-0.5 MG/3 ML Neb Soln NEB SCH ×4 (03:23→21:08)
[2022-11-06 05:56] LABS: EOSINOPHILS PERCENT AUTO 0 (0.8-7.0); HEMATOCRIT 46.4 % (40.1-51.0); HEMOGLOBIN 15.5 gm/dl (13.7-17.5); IMMATURE GRAN ABSOLUTE AUTO 0.03 K/mm3 (0.00-0.10); IMMATURE GRAN PERCENT AUTO 0.3 % (<=1.0); LYMPHOCYTES ABSOLUTE AUTO 0.75 K/mm3 (1.32-3.57); LYMPHOCYTES PERCENT AUTO 6.7 % (21.8-53.1); MEAN CORPUSCULAR HEMOGLOBIN 30.1 pg (25.7-32.2); MEAN CORPUSCULAR HGB CONC 33.4 g/dl (32.2-35.5); MEAN CORPUSCULAR VOLUME 90.1 fl (79.0-92.2); MEAN PLATELET VOLUME 10.4 fl (9.4-12.3); MONOCYTES ABSOLUTE AUTO 1.16 K/mm3 (0.30-0.82); MONOCYTES PERCENT AUTO 10.4 % (5.3-12.2); NEUTROPHILS ABSOLUTE AUTO 9.24 K/mm3 (1.78-5.38); NEUTROPHILS PERCENT AUTO 82.6 % (34.0-67.9); PLATELET COUNT,PLT 214 K/mm3 (163-337); RED BLOOD CELL COUNT 5.15 M/mm3 (4.63-6.08); WHITE BLOOD CELL COUNT,WBC 11.18 K/mm3 (4.23-9.07)
[2022-11-06 05:58] LABS: ANION GAP 8.4 (5-15); CALCIUM 8.8 mg/dL (8.5-10.1); EST CRCL DRUG DOSING (CG) 75.61 mL/min; POTASSIUM,K 4.4 mEq/L (3.5-5.1)
[2022-11-06] MEDS: Pantoprazole 40 MG Tab.CR PO SCH (06:10)
[2022-11-06] MEDS: Furosemide 40 MG/4 ML VIAL IVPUSH SCH ×2 (06:10→13:54)
[2022-11-06] MEDS: methylPREDNISolone Sodium Succinate 40 MG/1 ML SDV IVPUSH SCH ×2 (06:10→19:23)
[2022-11-06] MEDS: Lisinopril 20 MG Tab PO SCH (08:40)
[2022-11-06] MEDS: Isosorbide Mononitrate 60 MG Tab.ER PO SCH (08:41)
[2022-11-06] MEDS: Enoxaparin 40 MG/0.4 ML Syringe SUBCUT SCH (08:41)
[2022-11-06] MEDS: Clopidogrel 75 MG Tab PO SCH (08:41)
[2022-11-06] MEDS: Multivitamin Tab PO SCH (08:41)
[2022-11-06] MEDS: Sodium Chloride 1 GM Tab PO SCH ×4 (08:41→20:01)
[2022-11-06] MEDS: Albuterol/Ipratropium 3.0-0.5 MG/3 ML Neb Soln NEB PRN (12:28)
[2022-11-06] MEDS: Acetaminophen 325 MG Tab PO PRN ×2 (13:59→20:01)
[2022-11-06] MEDS: cefTRIAXone 1 GM in Sodium Chloride 0.9% 100 ML IV SCH (19:23)
[2022-11-06] MEDS: Rosuvastatin 10 MG Tab PO SCH (20:01)
[2022-11-07] MEDS: Albuterol/Ipratropium 3.0-0.5 MG/3 ML Neb Soln NEB SCH ×4 (02:27→20:50)
[2022-11-07] MEDS: Albuterol/Ipratropium 3.0-0.5 MG/3 ML Neb Soln NEB PRN (06:12)
[2022-11-07] MEDS: methylPREDNISolone Sodium Succinate 40 MG/1 ML SDV IVPUSH SCH ×2 (06:17→17:00)
[2022-11-07] MEDS: Furosemide 40 MG/4 ML VIAL IVPUSH SCH ×2 (06:17→14:13)
[2022-11-07] MEDS: Pantoprazole 40 MG Tab.CR PO SCH (06:17)
[2022-11-07 06:44] LABS: EOSINOPHILS PERCENT AUTO 0 (0.8-7.0); HEMATOCRIT 48.1 % (40.1-51.0); HEMOGLOBIN 15.7 gm/dl (13.7-17.5); IMMATURE GRAN ABSOLUTE AUTO 0.03 K/mm3 (0.00-0.10); IMMATURE GRAN PERCENT AUTO 0.3 % (<=1.0); LYMPHOCYTES ABSOLUTE AUTO 0.76 K/mm3 (1.32-3.57); LYMPHOCYTES PERCENT AUTO 7.5 % (21.8-53.1); MEAN CORPUSCULAR HGB CONC 32.6 g/dl (32.2-35.5); MEAN PLATELET VOLUME 10.2 fl (9.4-12.3); MONOCYTES ABSOLUTE AUTO 1.17 K/mm3 (0.30-0.82); MONOCYTES PERCENT AUTO 11.6 % (5.3-12.2); NEUTROPHILS ABSOLUTE AUTO 8.12 K/mm3 (1.78-5.38); NEUTROPHILS PERCENT AUTO 80.6 % (34.0-67.9); PLATELET COUNT,PLT 235 K/mm3 (163-337); RED BLOOD CELL COUNT 5.23 M/mm3 (4.63-6.08); WHITE BLOOD CELL COUNT,WBC 10.08 K/mm3 (4.23-9.07)
[2022-11-07 07:11] LABS: ANION GAP 8.6 (5-15); BUN/CREATININE RATIO 16.7 (14-18); CALCIUM 9.1 mg/dL (8.5-10.1); CREATININE 0.9 mg/dL (0.7-1.3); EST CRCL DRUG DOSING (CG) 84.01 mL/min; POTASSIUM,K 4.6 mEq/L (3.5-5.1)
[2022-11-07] MEDS: Enoxaparin 40 MG/0.4 ML Syringe SUBCUT SCH (08:08)
[2022-11-07] MEDS: Isosorbide Mononitrate 60 MG Tab.ER PO SCH (08:08)
[2022-11-07] MEDS: Multivitamin Tab PO SCH (08:08)
[2022-11-07] MEDS: Sodium Chloride 1 GM Tab PO SCH ×3 (08:08→20:27)
[2022-11-07] MEDS: Lisinopril 20 MG Tab PO SCH (08:08)
[2022-11-07] MEDS: Clopidogrel 75 MG Tab PO SCH (08:08)
[2022-11-07] MEDS: cefTRIAXone 1 GM in Sodium Chloride 0.9% 100 ML IV SCH (20:24)
[2022-11-07] MEDS: Rosuvastatin 10 MG Tab PO SCH (20:27)
[2022-11-07] MEDS: Nicotine 21 MG/24 Hr Patch TRDERM SCH (21:45)
[2022-11-08] MEDS: Albuterol/Ipratropium 3.0-0.5 MG/3 ML Neb Soln NEB SCH ×4 (02:34→20:09)
[2022-11-08] MEDS: Furosemide 40 MG/4 ML VIAL IVPUSH SCH ×2 (05:04→15:21)
[2022-11-08] MEDS: Pantoprazole 40 MG Tab.CR PO SCH (05:04)
[2022-11-08] MEDS: methylPREDNISolone Sodium Succinate 40 MG/1 ML SDV IVPUSH SCH ×2 (05:04→17:39)
[2022-11-08 06:10] LABS: EOSINOPHILS PERCENT AUTO 0 (0.8-7.0); HEMATOCRIT 50.1 % (40.1-51.0); HEMOGLOBIN 16.1 gm/dl (13.7-17.5); IMMATURE GRAN ABSOLUTE AUTO 0.03 K/mm3 (0.00-0.10); IMMATURE GRAN PERCENT AUTO 0.3 % (<=1.0); LYMPHOCYTES ABSOLUTE AUTO 1.12 K/mm3 (1.32-3.57); LYMPHOCYTES PERCENT AUTO 10.9 % (21.8-53.1); MEAN CORPUSCULAR HGB CONC 32.1 g/dl (32.2-35.5); MEAN CORPUSCULAR VOLUME 93.5 fl (79.0-92.2); MEAN PLATELET VOLUME 10.1 fl (9.4-12.3); MONOCYTES ABSOLUTE AUTO 1.31 K/mm3 (0.30-0.82); MONOCYTES PERCENT AUTO 12.8 % (5.3-12.2); PLATELET COUNT,PLT 230 K/mm3 (163-337); RED BLOOD CELL COUNT 5.36 M/mm3 (4.63-6.08); WHITE BLOOD CELL COUNT,WBC 10.26 K/mm3 (4.23-9.07)
[2022-11-08 06:23] LABS: ANION GAP 9.6 (5-15); CALCIUM 9.3 mg/dL (8.5-10.1); EST CRCL DRUG DOSING (CG) 75.61 mL/min; POTASSIUM,K 4.6 mEq/L (3.5-5.1)
[2022-11-08] MEDS: Lisinopril 20 MG Tab PO SCH (08:46)
[2022-11-08] MEDS: Clopidogrel 75 MG Tab PO SCH (08:47)
[2022-11-08] MEDS: Isosorbide Mononitrate 60 MG Tab.ER PO SCH (08:47)
[2022-11-08] MEDS: Multivitamin Tab PO SCH (08:47)
[2022-11-08] MEDS: Enoxaparin 40 MG/0.4 ML Syringe SUBCUT SCH (08:48)
[2022-11-08] MEDS: Sodium Chloride 1 GM Tab PO SCH ×3 (08:48→20:27)
[2022-11-08] MEDS: Nicotine 21 MG/24 Hr Patch TRDERM SCH (08:48)
[2022-11-08] MEDS ORDERED: Benzonatate 100 MG Cap PO PRN (09:36)
[2022-11-08] MEDS: cefTRIAXone 1 GM in Sodium Chloride 0.9% 100 ML IV SCH (19:42)
[2022-11-08] MEDS: Rosuvastatin 10 MG Tab PO SCH (20:27)
[2022-11-09] MEDS: Albuterol/Ipratropium 3.0-0.5 MG/3 ML Neb Soln NEB SCH ×2 (04:49→08:30)
[2022-11-09] MEDS: Pantoprazole 40 MG Tab.CR PO SCH (05:23)
[2022-11-09] MEDS: methylPREDNISolone Sodium Succinate 40 MG/1 ML SDV IVPUSH SCH (05:23)
[2022-11-09] MEDS: Furosemide 40 MG/4 ML VIAL IVPUSH SCH (05:31)
[2022-11-09] MEDS: Albuterol/Ipratropium 3.0-0.5 MG/3 ML Neb Soln NEB PRN (05:34)
[2022-11-09 06:34] LABS: BASOPHILS ABSOLUTE AUTO 0.01 K/mm3 (0.01-0.08); BASOPHILS PERCENT AUTO 0.1 % (0.1-1.2); EOSINOPHILS ABSOLUTE AUTO 0.01 K/mm3 (0.04-0.54); EOSINOPHILS PERCENT AUTO 0.1 (0.8-7.0); HEMATOCRIT 50.9 % (40.1-51.0); HEMOGLOBIN 16.4 gm/dl (13.7-17.5); IMMATURE GRAN ABSOLUTE AUTO 0.03 K/mm3 (0.00-0.10); IMMATURE GRAN PERCENT AUTO 0.3 % (<=1.0); LYMPHOCYTES ABSOLUTE AUTO 1.35 K/mm3 (1.32-3.57); LYMPHOCYTES PERCENT AUTO 13.1 % (21.8-53.1); MEAN CORPUSCULAR HEMOGLOBIN 30.1 pg (25.7-32.2); MEAN CORPUSCULAR HGB CONC 32.2 g/dl (32.2-35.5); MEAN CORPUSCULAR VOLUME 93.4 fl (79.0-92.2); MEAN PLATELET VOLUME 10.2 fl (9.4-12.3); MONOCYTES ABSOLUTE AUTO 1.19 K/mm3 (0.30-0.82); MONOCYTES PERCENT AUTO 11.5 % (5.3-12.2); NEUTROPHILS ABSOLUTE AUTO 7.72 K/mm3 (1.78-5.38); NEUTROPHILS PERCENT AUTO 74.9 % (34.0-67.9); PLATELET COUNT,PLT 238 K/mm3 (163-337); RED BLOOD CELL COUNT 5.45 M/mm3 (4.63-6.08); WHITE BLOOD CELL COUNT,WBC 10.31 K/mm3 (4.23-9.07)
[2022-11-09 06:55] LABS: A/G RATIO 1.4 (1-2); ALBUMIN 4.1 g/dl (3.4-5.0); ANION GAP 11.4 (5-15); BILIRUBIN TOTAL 0.6 mg/dL (0.2-1.0); BUN/CREATININE RATIO 19.1 (14-18); CALCIUM 9.2 mg/dL (8.5-10.1); CREATININE 1.1 mg/dL (0.7-1.3); EST CRCL DRUG DOSING (CG) 68.74 mL/min; POTASSIUM,K 4.4 mEq/L (3.5-5.1); PROTEIN TOTAL,TP 7.1 g/dl (6.4-8.2)
[2022-11-09] MEDS: Clopidogrel 75 MG Tab PO SCH (08:16)
[2022-11-09] MEDS: Sodium Chloride 1 GM Tab PO SCH (08:16)
[2022-11-09] MEDS: Lisinopril 20 MG Tab PO SCH (08:16)
[2022-11-09] MEDS: Isosorbide Mononitrate 60 MG Tab.ER PO SCH (08:16)
[2022-11-09] MEDS: Multivitamin Tab PO SCH (08:16)
[2022-11-09] MEDS: Nicotine 21 MG/24 Hr Patch TRDERM SCH (08:17)
[2022-11-09] MEDS: Enoxaparin 40 MG/0.4 ML Syringe SUBCUT SCH (08:17)
[2022-11-09 12:54] VITALS: BP 135/87; PULSE 90
== END 2022-11-09 14:25 | disposition home or self-care (01) | DRG 291 ==
LOC: JD.ED 16:44 → JD.MS 19:38
PROVIDERS: ADMIT Internal Medicine; ATTEND Internal Medicine
DX: I11.0 Hypertensive heart disease with heart failure (principal); I50.43 Acute on chronic combined systolic (congestive) and diastolic (congestive) heart failure; J96.01 Acute respiratory failure with hypoxia; J18.9 Pneumonia, unspecified organism; E87.1 Hypo-osmolality and hyponatremia; Z68.41 Body mass index [BMI] 40.0-44.9, adult; J44.1 Chronic obstructive pulmonary disease with (acute) exacerbation; F20.9 Schizophrenia, unspecified; Z20.822 Contact with and (suspected) exposure to COVID-19; H54.7 Unspecified visual loss; I25.10 Atherosclerotic heart disease of native coronary artery without angina pectoris; E78.00 Pure hypercholesterolemia, unspecified; K59.09 Other constipation; K21.9 Gastro-esophageal reflux disease without esophagitis; F17.210 Nicotine dependence, cigarettes, uncomplicated; F17.200 Nicotine dependence, unspecified, uncomplicated; E66.01 Morbid (severe) obesity due to excess calories; I25.5 Ischemic cardiomyopathy; Z79.82 Long term (current) use of aspirin; Z79.890 Hormone replacement therapy; Z79.899 Other long term (current) drug therapy; Z95.5 Presence of coronary angioplasty implant and graft; I25.2 Old myocardial infarction
CPT/HCPCS: 36415; 71045; 71045-26; 71046; 71046-26; 80048; 80053; 81001; 83880; 84300; 84484; 85025; 86140; 93005; 93010; 93306; 94640; 94660; 94762; 96374; 96375; 97162-GP; 99285; 99285-25; A9270-GY; J0696; J1650; J1940; J2920; J3490; J7620-GY; U0002

== ENCOUNTER 2022-11-13 14:45 | Emergency (ER) | payer MEDICAID ==
[2022-11-13 18:13] LABS: BASOPHILS ABSOLUTE AUTO 0.02 K/mm3 (0.01-0.08); BASOPHILS PERCENT AUTO 0.1 % (0.1-1.2); EOSINOPHILS ABSOLUTE AUTO 0.06 K/mm3 (0.04-0.54); EOSINOPHILS PERCENT AUTO 0.4 (0.8-7.0); HEMATOCRIT 50.6 % (40.1-51.0); HEMOGLOBIN 16.6 gm/dl (13.7-17.5); IMMATURE GRAN ABSOLUTE AUTO 0.12 K/mm3 (0.00-0.10); IMMATURE GRAN PERCENT AUTO 0.7 % (<=1.0); LYMPHOCYTES ABSOLUTE AUTO 3.28 K/mm3 (1.32-3.57); LYMPHOCYTES PERCENT AUTO 19.2 % (21.8-53.1); MEAN CORPUSCULAR HEMOGLOBIN 30.3 pg (25.7-32.2); MEAN CORPUSCULAR HGB CONC 32.8 g/dl (32.2-35.5); MEAN CORPUSCULAR VOLUME 92.3 fl (79.0-92.2); MEAN PLATELET VOLUME 10.1 fl (9.4-12.3); MONOCYTES PERCENT AUTO 12.9 % (5.3-12.2); NEUTROPHILS PERCENT AUTO 66.7 % (34.0-67.9); PLATELET COUNT,PLT 270 K/mm3 (163-337); RED BLOOD CELL COUNT 5.48 M/mm3 (4.63-6.08); WHITE BLOOD CELL COUNT,WBC 17.08 K/mm3 (4.23-9.07)
[2022-11-13] MEDS ORDERED: Albuterol/Ipratropium 3.0-0.5 MG/3 ML Neb Soln NEB ONE (18:30)
[2022-11-13 18:51] LABS: SLIDE REVIEW ABNORMAL SMEAR
[2022-11-13 18:55] LABS: A/G RATIO 1.3 (1-2); ALBUMIN 4.2 g/dl (3.4-5.0); ANION GAP 11.5 (5-15); BILIRUBIN TOTAL 0.6 mg/dL (0.2-1.0); BUN/CREATININE RATIO 12.5 (14-18); CALCIUM 9.2 mg/dL (8.5-10.1); CREATININE 1.2 mg/dL (0.7-1.3); EST CRCL DRUG DOSING (CG) 63.01 mL/min; POTASSIUM,K 3.5 mEq/L (3.5-5.1); PROTEIN TOTAL,TP 7.4 g/dl (6.4-8.2); TSH 3.954 uIU/mL (0.358-3.74)
[2022-11-13 20:42] LABS: APPEARANCE,URINE CLEAR (Clear); BILIRUBIN,URINE NEGATIVE (Negative); COLOR,URINE YELLOW (Yellow); GLUCOSE,URINE NEGATIVE (Negative); KETONES,URINE NEGATIVE (Negative); LEUKOCYTE ESTERASE,URINE NEGATIVE (Negative); NITRITE,URINE NEGATIVE (Negative); OCCULT BLOOD,URINE NEGATIVE (Negative); PH,URINE 6.5 (5.0-8.0); PROTEIN,URINE NEGATIVE (Negative)
[2022-11-13 20:49] LABS: BARBITURATE SCREEN,URINE NEGATIVE (CUTOFF=200); BENZODIAZEPINES SCREEN,URINE NEGATIVE (CUTOFF=150); BUPRENORPHINE SCREEN,URINE NEGATIVE (CUTOFF=10); METHADONE SCREEN, URINE NEGATIVE (CUT0FF=200); METHAMPHETAMINES SCREEN, URINE NEGATIVE (CUTOFF=500); OXYCODONE SCREEN,URINE NEGATIVE (CUT0FF=100); PROPOXYPHENE SCREEN,URINE NEGATIVE (CUTOFF=300); THC SCREEN,URINE 20 NG/ML NEGATIVE (CUTOFF=50)
[2022-11-13 20:53] LABS: AMPHETAMINES SCREEN, URINE NEGATIVE (CUTOFF=500)
[2022-11-13 21:18] VITALS: BP 106/74; PULSE 93
== END 2022-11-13 23:15 | disposition home or self-care (01) ==
LOC: JD.ED 14:45
DX: F20.89 Other schizophrenia (principal); I11.0 Hypertensive heart disease with heart failure; I50.9 Heart failure, unspecified; I25.10 Atherosclerotic heart disease of native coronary artery without angina pectoris; K21.9 Gastro-esophageal reflux disease without esophagitis; E66.9 Obesity, unspecified; Z68.39 Body mass index [BMI] 39.0-39.9, adult; Z79.899 Other long term (current) drug therapy; Z79.01 Long term (current) use of anticoagulants; Z79.02 Long term (current) use of antithrombotics/antiplatelets; Z95.1 Presence of aortocoronary bypass graft
CPT/HCPCS: 36415; 71045; 71045-26; 80053; 80143; 80179; 80306; 80307; 81003; 84443; 85025; 93005; 93010; 94640; 99283; J7620-GY

== ENCOUNTER 2022-11-19 15:06 | Emergency (ER) | payer MEDICAID ==
[2022-11-19 15:26] VITALS: BP 170/94; PULSE 93
[2022-11-19 16:52] LABS: BASOPHILS ABSOLUTE AUTO 0.03 K/mm3 (0.01-0.08); BASOPHILS PERCENT AUTO 0.2 % (0.1-1.2); EOSINOPHILS ABSOLUTE AUTO 0.25 K/mm3 (0.04-0.54); EOSINOPHILS PERCENT AUTO 1.8 (0.8-7.0); HEMATOCRIT 45.7 % (40.1-51.0); IMMATURE GRAN ABSOLUTE AUTO 0.09 K/mm3 (0.00-0.10); IMMATURE GRAN PERCENT AUTO 0.7 % (<=1.0); LYMPHOCYTES ABSOLUTE AUTO 1.54 K/mm3 (1.32-3.57); LYMPHOCYTES PERCENT AUTO 11.4 % (21.8-53.1); MEAN CORPUSCULAR HEMOGLOBIN 30.2 pg (25.7-32.2); MEAN CORPUSCULAR HGB CONC 32.8 g/dl (32.2-35.5); MEAN CORPUSCULAR VOLUME 92.1 fl (79.0-92.2); MEAN PLATELET VOLUME 10.6 fl (9.4-12.3); MONOCYTES ABSOLUTE AUTO 1.43 K/mm3 (0.30-0.82); MONOCYTES PERCENT AUTO 10.6 % (5.3-12.2); NEUTROPHILS ABSOLUTE AUTO 10.18 K/mm3 (1.78-5.38); NEUTROPHILS PERCENT AUTO 75.3 % (34.0-67.9); PLATELET COUNT,PLT 220 K/mm3 (163-337); RED BLOOD CELL COUNT 4.96 M/mm3 (4.63-6.08); WHITE BLOOD CELL COUNT,WBC 13.52 K/mm3 (4.23-9.07)
[2022-11-19 16:53] LABS: APPEARANCE,URINE SLT CLOUDY (Clear); BILIRUBIN,URINE 1+ (Negative); COLOR,URINE YELLOW (Yellow); GLUCOSE,URINE NEGATIVE (Negative); KETONES,URINE 1+ (Negative); LEUKOCYTE ESTERASE,URINE NEGATIVE (Negative); NITRITE,URINE NEGATIVE (Negative); OCCULT BLOOD,URINE TRACE-INTACT (Negative); PH,URINE 6.5 (5.0-8.0); PROTEIN,URINE 1+ (Negative)
[2022-11-19 17:02] LABS: AMORPHOUS SEDIMENT,URINE FEW /hpf (NOT SEEN); BACTERIA,URINE FEW /hpf (FEW); BARBITURATE SCREEN,URINE NEGATIVE (CUTOFF=200); BENZODIAZEPINES SCREEN,URINE NEGATIVE (CUTOFF=150); BUPRENORPHINE SCREEN,URINE NEGATIVE (CUTOFF=10); METHADONE SCREEN, URINE NEGATIVE (CUT0FF=200); METHAMPHETAMINES SCREEN, URINE NEGATIVE (CUTOFF=500); MUCUS,URINE FEW /hpf (FEW); OXYCODONE SCREEN,URINE NEGATIVE (CUT0FF=100); PROPOXYPHENE SCREEN,URINE NEGATIVE (CUTOFF=300); SQUAMOUS EPITHELIAL CELLS,UR NOT SEEN /hpf (0-5); THC SCREEN,URINE 20 NG/ML NEGATIVE (CUTOFF=50); WBC,URINE 0-5 /hpf (0-5)
[2022-11-19 17:04] LABS: AMPHETAMINES SCREEN, URINE NEGATIVE (CUTOFF=500)
[2022-11-19 17:23] LABS: A/G RATIO 1.3 (1-2); ALBUMIN 3.9 g/dl (3.4-5.0); ANION GAP 10.7 (5-15); BILIRUBIN TOTAL 0.6 mg/dL (0.2-1.0); BUN/CREATININE RATIO 9.1 (14-18); CALCIUM 9.2 mg/dL (8.5-10.1); CREATININE 1.1 mg/dL (0.7-1.3); EST CRCL DRUG DOSING (CG) 68.74 mL/min; POTASSIUM,K 3.7 mEq/L (3.5-5.1); PROTEIN TOTAL,TP 6.8 g/dl (6.4-8.2); TSH 3.14 uIU/mL (0.358-3.74)
== END 2022-11-19 21:00 | disposition home or self-care (01) ==
LOC: JD.ED 15:06
DX: F22 Delusional disorders (principal); I25.10 Atherosclerotic heart disease of native coronary artery without angina pectoris; I11.0 Hypertensive heart disease with heart failure; I50.9 Heart failure, unspecified; E78.00 Pure hypercholesterolemia, unspecified; I25.2 Old myocardial infarction; K21.9 Gastro-esophageal reflux disease without esophagitis; E03.9 Hypothyroidism, unspecified; E66.9 Obesity, unspecified; Z68.38 Body mass index [BMI] 38.0-38.9, adult; Z86.16 Personal history of COVID-19; Z79.02 Long term (current) use of antithrombotics/antiplatelets; Z79.82 Long term (current) use of aspirin; Z79.899 Other long term (current) drug therapy
CPT/HCPCS: 36415; 80053; 80143; 80179; 80306; 80307; 81001; 84443; 85025; 93005; 93010; 99283; 99285

== ENCOUNTER 2022-12-16 14:20 | Emergency (ER) | payer SELFPAY ==
[2022-12-16 19:01] VITALS: BP 146/88; PULSE 79
== END 2022-12-16 17:18 ==
LOC: JD.ED 14:20
DX: R09.02 Hypoxemia (principal); I25.10 Atherosclerotic heart disease of native coronary artery without angina pectoris; I11.0 Hypertensive heart disease with heart failure; I50.9 Heart failure, unspecified; E78.00 Pure hypercholesterolemia, unspecified; I25.2 Old myocardial infarction; K21.9 Gastro-esophageal reflux disease without esophagitis; E03.9 Hypothyroidism, unspecified; E66.9 Obesity, unspecified; F17.210 Nicotine dependence, cigarettes, uncomplicated; Z86.16 Personal history of COVID-19; Z79.899 Other long term (current) drug therapy; Z79.82 Long term (current) use of aspirin; Z95.5 Presence of coronary angioplasty implant and graft
CPT/HCPCS: 71045; 71045-26; 99284; 99285

== ENCOUNTER 2023-01-23 06:39 | Emergency (ER) | payer MEDICARE ==
[2023-01-23 07:44] VITALS: BP 131/84; PULSE 88
== END 2023-01-23 07:40 | disposition home or self-care (01) ==
LOC: JD.ED 06:39
DX: F20.89 Other schizophrenia (principal); F91.9 Conduct disorder, unspecified; F17.210 Nicotine dependence, cigarettes, uncomplicated; I10 Essential (primary) hypertension; I25.10 Atherosclerotic heart disease of native coronary artery without angina pectoris; E78.00 Pure hypercholesterolemia, unspecified; K21.9 Gastro-esophageal reflux disease without esophagitis; E03.9 Hypothyroidism, unspecified; Z86.16 Personal history of COVID-19; Z95.5 Presence of coronary angioplasty implant and graft; Z79.899 Other long term (current) drug therapy
CPT/HCPCS: 99283; 99284

== ENCOUNTER 2023-01-23 11:18 | Emergency (ER) | payer MEDICARE ==
[2023-01-23 11:41] VITALS: PULSE 82
[2023-01-23] MEDS ORDERED: risperiDONE Solution 1 MG/1 ML 30 ML Bottle PO STA (13:16)
[2023-01-23] MEDS ORDERED: risperiDONE 1 MG Tab PO STA (13:22)
[2023-01-23 22:02] VITALS: BP 108/68
== END 2023-01-23 13:45 | disposition home or self-care (01) ==
LOC: JD.ED 11:18
DX: F20.89 Other schizophrenia (principal); F91.9 Conduct disorder, unspecified; F17.210 Nicotine dependence, cigarettes, uncomplicated; I10 Essential (primary) hypertension; I25.10 Atherosclerotic heart disease of native coronary artery without angina pectoris; E78.00 Pure hypercholesterolemia, unspecified; K21.9 Gastro-esophageal reflux disease without esophagitis; E03.9 Hypothyroidism, unspecified; Z79.899 Other long term (current) drug therapy; Z86.16 Personal history of COVID-19; Z95.5 Presence of coronary angioplasty implant and graft
CPT/HCPCS: 99283; 99284; A9270

== ENCOUNTER 2023-02-22 01:18 | Emergency (ER) | payer MEDICARE ==
[2023-02-22 02:05] LABS: BASOPHILS ABSOLUTE AUTO 0.1 K/mm3 (0.0-0.2); BASOPHILS PERCENT AUTO 0.4 % (0.0-1.0); EOSINOPHILS ABSOLUTE AUTO 0.3 K/mm3 (0.0-0.4); HEMOGLOBIN 12.7 gm/dl (14.0-18.0); IMMATURE GRAN ABSOLUTE AUTO 0.06 K/mm3 (0.00-0.05); IMMATURE GRAN PERCENT AUTO 0.5 % (0.0-0.4); LYMPHOCYTES ABSOLUTE AUTO 1.9 K/mm3 (1.0-4.8); LYMPHOCYTES PERCENT AUTO 15.3 % (24.0-44.0); MEAN CORPUSCULAR HEMOGLOBIN 30.8 pg (28.0-32.0); MEAN CORPUSCULAR HGB CONC 32.6 g/dl (32.0-36.0); MEAN CORPUSCULAR VOLUME 94.4 fl (83.0-99.0); MEAN PLATELET VOLUME 10.4 fl (9.4-12.4); MONOCYTES ABSOLUTE AUTO 1.1 K/mm3 (0.0-0.8); MONOCYTES PERCENT AUTO 8.8 % (0.0-8.0); NEUTROPHILS ABSOLUTE AUTO 9.3 K/mm3 (1.8-7.7); PLATELET COUNT,PLT 218 K/mm3 (150-400); RED BLOOD CELL COUNT 4.13 M/mm3 (4.52-5.90); WHITE BLOOD CELL COUNT,WBC 12.65 K/mm3 (3.9-11.3)
[2023-02-22 02:32] LABS: A/G RATIO 1.3 (1-2); ALBUMIN 3.6 g/dl (3.4-5.0); ANION GAP 11.3 (5-15); BILIRUBIN TOTAL 0.4 mg/dL (0.2-1.0); CALCIUM 8.6 mg/dL (8.5-10.1); CREATININE 0.9 mg/dL (0.7-1.3); EST CRCL DRUG DOSING (CG) 84.01 mL/min; POTASSIUM,K 3.3 mEq/L (3.5-5.1); PROTEIN TOTAL,TP 6.4 g/dl (6.4-8.2)
[2023-02-22 03:26] LABS: CORONAVIRUS COVID-19 NAA NEGATIVE (NEGATIVE)
[2023-02-22 05:19] VITALS: BP 108/59; PULSE 73
[2023-02-22 05:32] LABS: INFLUENZA A NAA NEGATIVE (NEGATIVE); RESPIRATORY SYNCYTIAL VIR NAA NEGATIVE (NEGATIVE)
== END 2023-02-22 06:15 ==
LOC: JD.ED 01:18
DX: R09.02 Hypoxemia (principal); I11.0 Hypertensive heart disease with heart failure; I50.9 Heart failure, unspecified; I25.10 Atherosclerotic heart disease of native coronary artery without angina pectoris; I25.2 Old myocardial infarction; E78.00 Pure hypercholesterolemia, unspecified; J44.9 Chronic obstructive pulmonary disease, unspecified; E03.9 Hypothyroidism, unspecified; K21.9 Gastro-esophageal reflux disease without esophagitis; E66.9 Obesity, unspecified; Z95.5 Presence of coronary angioplasty implant and graft; Z20.822 Contact with and (suspected) exposure to COVID-19; Z86.16 Personal history of COVID-19; Z79.01 Long term (current) use of anticoagulants; Z79.82 Long term (current) use of aspirin; Z79.899 Other long term (current) drug therapy; Z68.36 Body mass index [BMI] 36.0-36.9, adult
CPT/HCPCS: 0241U; 36415; 71045; 80053; 85025; 99284; 99283

== ENCOUNTER 2023-03-04 20:51 | Emergency (ER) | payer MEDICARE ==
[2023-03-05 07:32] VITALS: BP 134/78; PULSE 71
== END 2023-03-04 21:41 ==
LOC: JD.ED 20:51
DX: J44.9 Chronic obstructive pulmonary disease, unspecified (principal); F17.210 Nicotine dependence, cigarettes, uncomplicated; E03.9 Hypothyroidism, unspecified; I11.0 Hypertensive heart disease with heart failure; I25.2 Old myocardial infarction; I25.10 Atherosclerotic heart disease of native coronary artery without angina pectoris; I50.9 Heart failure, unspecified; K21.9 Gastro-esophageal reflux disease without esophagitis; E66.9 Obesity, unspecified; Z99.81 Dependence on supplemental oxygen; Z95.5 Presence of coronary angioplasty implant and graft; Z86.16 Personal history of COVID-19; Z79.02 Long term (current) use of antithrombotics/antiplatelets; Z79.82 Long term (current) use of aspirin; Z79.899 Other long term (current) drug therapy; Z68.38 Body mass index [BMI] 38.0-38.9, adult
CPT/HCPCS: 99283; 99284

== ENCOUNTER 2023-04-06 09:36 | Emergency (ER) | payer MEDICARE, OTHER ==
[2023-04-06] MEDS ORDERED: Sodium Chloride 0.9% 10 ML Syringe FLUSH PRN (09:48)
[2023-04-06] MEDS ORDERED: Aspirin 81 MG Tab.Chew PO ONE ×2 (09:48→10:04)
[2023-04-06 09:51] VITALS: PULSE 65
[2023-04-06 10:45] LABS: BASOPHILS PERCENT AUTO 0.6 % (0.0-1.0); EOSINOPHILS ABSOLUTE AUTO 0.3 K/mm3 (0.0-0.4); EOSINOPHILS PERCENT AUTO 3.7 % (0.0-6.0); HEMATOCRIT 40.9 % (42.0-52.0); HEMOGLOBIN 14.1 gm/dl (14.0-18.0); IMMATURE GRAN ABSOLUTE AUTO 0.02 K/mm3 (0.00-0.05); IMMATURE GRAN PERCENT AUTO 0.3 % (0.0-0.4); LYMPHOCYTES ABSOLUTE AUTO 1.4 K/mm3 (1.0-4.8); LYMPHOCYTES PERCENT AUTO 19.4 % (24.0-44.0); MEAN CORPUSCULAR HEMOGLOBIN 31.3 pg (28.0-32.0); MEAN CORPUSCULAR HGB CONC 34.5 g/dl (32.0-36.0); MEAN PLATELET VOLUME 11.3 fl (9.4-12.4); MONOCYTES ABSOLUTE AUTO 0.7 K/mm3 (0.0-0.8); MONOCYTES PERCENT AUTO 9.9 % (0.0-8.0); NEUTROPHILS ABSOLUTE AUTO 4.8 K/mm3 (1.8-7.7); NEUTROPHILS PERCENT AUTO 66.1 % (41.0-71.0); PLATELET COUNT,PLT 180 K/mm3 (150-400); WHITE BLOOD CELL COUNT,WBC 7.25 K/mm3 (3.9-11.3)
[2023-04-06 10:53] LABS: MEAN CORPUSCULAR VOLUME 90.9 fl (83.0-99.0)
[2023-04-06] MEDS ORDERED: Lactated Ringers 1,000 ML IV ONE (11:01)
[2023-04-06 11:05] LABS: D-DIMER QUANTITATIVE 0.38 mg/L (0.19-0.50); PROTHROMBIN TIME 10.7 SECONDS (9.7-12.0)
[2023-04-06 11:17] VITALS: BP 98/71
[2023-04-06 11:22] LABS: A/G RATIO 1.4 (1-2); ALBUMIN 4.1 g/dl (3.4-5.0); ANION GAP 13.6 (5-15); BILIRUBIN TOTAL 0.5 mg/dL (0.2-1.0); BUN/CREATININE RATIO 13.1 (14-18); CALCIUM 9.4 mg/dL (8.5-10.1); CREATININE 1.3 mg/dL (0.7-1.3); EST CRCL DRUG DOSING (CG) 57.41 mL/min; MAGNESIUM 2.1 mg/dL (1.8-2.4); POTASSIUM,K 4.6 mEq/L (3.5-5.1)
== END 2023-04-06 11:58 ==
LOC: JD.ED 09:36
DX: R07.89 Other chest pain (principal); I20.0 Unstable angina; I95.9 Hypotension, unspecified; I25.2 Old myocardial infarction; I11.0 Hypertensive heart disease with heart failure; I50.9 Heart failure, unspecified; J44.9 Chronic obstructive pulmonary disease, unspecified; K21.9 Gastro-esophageal reflux disease without esophagitis; E66.9 Obesity, unspecified
CPT/HCPCS: 36415; 71045; 80053; 83735; 83880; 84443; 84484; 85025; 85379; 85610; 93005; 93246; 94762; 99285; A9270; J7120; 93010; 99283

== ENCOUNTER 2023-09-13 12:41 | Emergency (ER) | payer MEDICARE ==
[2023-09-13 13:30] LABS: BASOPHILS ABSOLUTE AUTO 0.1 K/mm3 (0.0-0.2); BASOPHILS PERCENT AUTO 0.4 % (0.0-1.0); EOSINOPHILS PERCENT AUTO 0.2 % (0.0-6.0); HEMATOCRIT 41.3 % (42.0-52.0); HEMOGLOBIN 13.6 gm/dl (14.0-18.0); IMMATURE GRAN ABSOLUTE AUTO 0.08 K/mm3 (0.00-0.05); IMMATURE GRAN PERCENT AUTO 0.5 % (0.0-0.4); LYMPHOCYTES ABSOLUTE AUTO 1.8 K/mm3 (1.0-4.8); LYMPHOCYTES PERCENT AUTO 10.4 % (24.0-44.0); MEAN CORPUSCULAR HEMOGLOBIN 30.6 pg (28.0-32.0); MEAN CORPUSCULAR HGB CONC 32.9 g/dl (32.0-36.0); MEAN PLATELET VOLUME 10.8 fl (9.4-12.4); MONOCYTES PERCENT AUTO 11.8 % (0.0-8.0); NEUTROPHILS ABSOLUTE AUTO 13.1 K/mm3 (1.8-7.7); NEUTROPHILS PERCENT AUTO 76.7 % (41.0-71.0); PLATELET COUNT,PLT 207 K/mm3 (150-400); RED BLOOD CELL COUNT 4.44 M/mm3 (4.52-5.90); WHITE BLOOD CELL COUNT,WBC 17.02 K/mm3 (3.9-11.3)
[2023-09-13 14:00] LABS: A/G RATIO 1.5 (1-2); ALBUMIN 4.1 g/dl (3.4-5.0); ANION GAP 16.5 (5-15); BILIRUBIN TOTAL 0.5 mg/dL (0.2-1.0); CALCIUM 9.1 mg/dL (8.5-10.1); EST CRCL DRUG DOSING (CG) 74.63 mL/min; POTASSIUM,K 3.5 mEq/L (3.5-5.1); PROTEIN TOTAL,TP 6.9 g/dl (6.4-8.2); TSH 9.677 uIU/mL (0.358-3.74)
[2023-09-13 14:02] LABS: SLIDE REVIEW ABNORMAL SMEAR
[2023-09-13 14:56] LABS: APPEARANCE,URINE CLEAR (Clear); BILIRUBIN,URINE NEGATIVE (Negative); COLOR,URINE LIGHT YELLOW (Yellow); GLUCOSE,URINE NEGATIVE (Negative); KETONES,URINE 1+ (Negative); LEUKOCYTE ESTERASE,URINE NEGATIVE (Negative); NITRITE,URINE NEGATIVE (Negative); OCCULT BLOOD,URINE NEGATIVE (Negative); PH,URINE 6.5 (5.0-8.0); PROTEIN,URINE NEGATIVE (Negative); UROBILINOGEN,URINE 0.2 (0.2-1.0)
[2023-09-13 15:06] LABS: BACTERIA,URINE FEW /hpf (FEW); EPITHELIAL CELLS,URINE 0-5 /hpf (0-5); MUCUS,URINE FEW /hpf (FEW); RBC,URINE 0-5 /hpf (0-5); WBC,URINE 0-5 /hpf (0-5)
[2023-09-13 15:13] LABS: BARBITURATE SCREEN,URINE NEGATIVE (CUTOFF=200); BENZODIAZEPINES SCREEN,URINE NEGATIVE (CUTOFF=150); BUPRENORPHINE SCREEN,URINE NEGATIVE (CUTOFF=10); METHADONE SCREEN, URINE NEGATIVE (CUT0FF=200); METHAMPHETAMINES SCREEN, URINE NEGATIVE (CUTOFF=500); OXYCODONE SCREEN,URINE NEGATIVE (CUT0FF=100); THC SCREEN,URINE 20 NG/ML NEGATIVE (CUTOFF=50)
[2023-09-13 15:24] LABS: AMPHETAMINES SCREEN, URINE NEGATIVE (CUTOFF=500)
[2023-09-13 18:12] VITALS: BP 143/96; PULSE 78
== END 2023-09-13 18:10 | disposition other institution (70) ==
LOC: JD.ED 12:41
DX: F20.89 Other schizophrenia (principal); J44.9 Chronic obstructive pulmonary disease, unspecified; K21.9 Gastro-esophageal reflux disease without esophagitis; E03.9 Hypothyroidism, unspecified; E66.9 Obesity, unspecified; I25.2 Old myocardial infarction; Z79.899 Other long term (current) drug therapy; Z86.19 Personal history of other infectious and parasitic diseases; Z86.16 Personal history of COVID-19; Z79.82 Long term (current) use of aspirin; Z68.36 Body mass index [BMI] 36.0-36.9, adult
CPT/HCPCS: 36415; 80053; 80143; 80179; 80306; 80307; 81001; 84439; 84443; 85025; 93005; 93010; 99283